=== PATIENT | female | born 1985 | race Caucasian/White ===

== ENCOUNTER 2016-06-14 08:56 | Inpatient (IN) | payer MEDICAID ==
[~2016-06-14] VITALS: Ht 165.1 cm; Wt 83.6 kg
[2016-06-14 09:27] VITALS: BMI 30.7
[2016-06-14] MEDS ORDERED: PRENAT PO (09:27)
[2016-06-14 09:30] VITALS: BP 110/75; PULSE 65; RESP 18
[2016-06-14 09:32] VITALS: Ht 165.1 cm; Wt 83.6 kg
[2016-06-14] MEDS ORDERED: LACTATED RINGER'S 1,000 ML IV SCH (09:44)
[2016-06-14] MEDS ORDERED: IBUPROFEN 600 MG TAB PO PRN (10:00)
[2016-06-14] MEDS ORDERED: METHYLERGONOVINE 0.2 MG INJ IM PRN (10:00)
[2016-06-14] MEDS ORDERED: AMPICILLIN 2 GM/NS (PMX) 100 ML IV ONE (10:00)
[2016-06-14] MEDS ORDERED: OXYTOCIN 30 UNITS/LR 500 ML IV PRN (10:00)
[2016-06-14] MEDS ORDERED: OXYTOCIN 30 UNITS/LR 500 ML IV SCH ×3 (10:00)
[2016-06-14] MEDS ORDERED: CARBOPROST 250 MCG INJ IM PRN (10:00)
[2016-06-14] MEDS ORDERED: MISOPROSTOL 200 MCG TAB PR PRN (10:00)
[2016-06-14] MEDS ORDERED: LIDOCAINE 1% (MPF) 30 ML INJ INJ PRN (10:00)
[2016-06-14] MEDS ORDERED: BUTORPHANOL 2 MG INJ IV PRN ×2 (10:00)
--- NOTE | 2016-06-14 10:58 | RADRPT ---
PROCEDURE: US OB CLINICAL INDICATION: srom/ check for presentation TECHNIQUE: Multiple sonographic images of the pelvis were obtained. The images were reviewed on a PACS workstation. COMPARISON: None FINDINGS: The cervix is not well visualized. There is a single viable intrauterine gestation. Cardiac activity is present with 150 beats per minute. There is a vertex presentation. The placenta is anterior. There is no evidence for an abruption or placenta previa. IMPRESSION: Cephalic presentation. RPTAT: EE Physician Suellen Date Time Electronically viewed and signed by Physician Suellen on 06/14/2016 10:58 RA/
[2016-06-14] MEDS ORDERED: LACTATED RINGER'S 1,000 ML IV PRN (11:00)
[2016-06-14 11:19] LABS: ADD SCAN DIFF NO
[2016-06-14 11:23] LABS: BASOPHILS % 0.4 % (0.0-2.0); EOSINOPHILS # 0.1 10^3/ul (0.0-0.5); EOSINOPHILS % 0.7 % (0.0-7.0); HEMATOCRIT 37.1 % (37.0-47.0); HEMOGLOBIN 12.4 g/dl (12.0-16.0); LYMPHOCYTES # 2.4 10^3/ul (0.8-2.9); LYMPHOCYTES % 28.6 % (15.0-51.0); MEAN CORPUSCULAR HEMOGLOBIN 29.5 pg (29.0-33.0); MEAN CORPUSCULAR HGB CONC 33.4 g/dl (32.0-37.0); MEAN CORPUSCULAR VOLUME 88.1 fl (82.0-101.0); MEAN PLATELET VOLUME 10.3 fl (7.4-10.4); MONOCYTE # 0.8 10^3/ul (0.3-0.9); MONOCYTES % 9.1 % (0.0-11.0); NEUTROPHILS % 60.7 % (39.0-77.0); PLATELET COUNT 207 10^3/UL (140-415); RED BLOOD COUNT 4.21 10^6/ul (4.20-5.40); RED CELL DISTRIBUTION WIDTH 13.8 % (11.5-14.5); WHITE BLOOD COUNT 8.2 10^3/ul (4.8-10.8)
[2016-06-14 11:32] LABS: INR 0.94; PROTIME 12.6 Sec (12.2-14.2)
[2016-06-14 11:33] LABS: PARTIAL THROMBOPLASTIN TIME 23.8 Sec (25.0-35.0)
[2016-06-14] MEDS ORDERED: AMPICILLIN 1 GM/NS (PMX) 50 ML IV SCH (14:00)
--- NOTE | 2016-06-14 16:10 | HP ---
Date/Time of Note Date/Time of Note DATE: 06/14/16 TIME: 15:58 OB - History Hx of Present Free Text/Dictation 30 years old female 2 para 1, 36 weeks and 3 days admitted to [facility] in active labor with premature rupture of membrane ,admission pelvic examination cervix 1-1/2 cm 50% effaced vertex at -1 station contraction 2-4 minutes, after admission patient started on antibiotics and labor augmentation with Pitocin IV infusion drip., heart rate category 1. Chief Complaint: Premature rupture of membrane labor contraction Estimated Due Date: Jun 11, 2016 : 2 Para: 1 Care: Good Care Ultrasounds: Normal mid trimester US Obstetrical Complications: None Medical Complications: None Past Family/Social History * Past Medical, Surgical, Family and Obstetric Histories reviewed from chart. Rubella: immune RPR/VDRL: Negative GBS Status: Negative OB Admission Exam Vital Signs Vital Signs Vital Signs Date Time Temp Pulse Resp B/P Pulse Ox O2 Delivery O2 Flow Rate FiO2 06/14/16 09:30 98.2 65 18 110/75 Room Air Physical Exam HEENT: WNL Heart: Rhythm Normal Lungs: Clear, Equal Abdomen: WNL Extremities: Normal Reflexes: Normal Cervical Dilatation: 2cm Effacement: 50% Station: -1 Membranes: Ruptured Amniotic Fluid: Clear Heart Rate: 130's Accelerations: Accelerations Present Decelerations: No Decelerations Varibility: Moderate Contractions on Admission: < 5 Minutes Apart Intensity: Mild Last 72 hours Lab Results CBC & BMP 06/14/16 10:40 TONA WHITAKER MD Jun 14, 2016 16:09
--- NOTE | 2016-06-14 16:16 | LDN ---
Date/Time of Note Date/Time of Note DATE: 06/14/16 TIME: 16:11 Delivery Summary Normal spontaneous vaginal delivery of a live baby boy from ROSA position shoulders delivered without difficulty followed with the rest of the baby,s body placenta spontaneous expulsion inspected complete patient sustained small first-degree perineal laceration repaired with 3-0 chromic catgut, estimated blood loss 300 cc patient received 30 units of Pitocin through the IV infusion after the delivery fundus was firm and lochia moderate dark red color, Placenta Delivered: Spontaneously Meconium: none Perineum intact?: No Perineal laceration repair: First-degree perineal laceration repaired with 3-0 chromic catgut Anesthesia type: Local Estimated blood loss: 300 Sponge & Needle done & correct: Yes All needle counts correct: Yes Any foreign bodies felt in the: No Problems: Infant Delivery Information Sex Infant Sex: male Apgars 1 Minute: 9 5 Minute: 9 Suctioning Nose & mouth suctioned at perico: Yes Delee suction performed: No Umbilical Cord Umbilical cord with: 3 Vessels Cord presentations: no nuchal cord Cord Blood was obtained: Yes TONA WHITAKER MD Jun 14, 2016 16:16
[2016-06-14] MEDS: OXYTOCIN 30 UNITS/LR 500 ML IV SCH ×2 (17:31→20:43)
[2016-06-14 18:00] VITALS: BP 114/70; PULSE 74; RESP 18
[2016-06-14] MEDS ORDERED: ACETAMINOPHEN 325 MG TAB PO PRN (18:00)
[2016-06-14] MEDS ORDERED: ACETAMINOPHEN/CODEINE #3 TAB PO PRN ×2 (18:00)
[2016-06-14] MEDS ORDERED: BENZOCAINE 20% 56 ML SPRAY TOP PRN (18:00)
[2016-06-14] MEDS ORDERED: WITCH HAZEL/GLYCERIN PAD PR PRN (18:00)
[2016-06-14] MEDS: IBUPROFEN 600 MG TAB PO SCH ×2 (18:00→23:35)
[2016-06-14] MEDS ORDERED: DIBUCAINE 1% 30 GM OINT TOP PRN (18:00)
[2016-06-14] MEDS ORDERED: ONDANSETRON 4 MG INJ IV PRN (18:00)
[2016-06-14] MEDS ORDERED: LANOLIN 7 GM TUBE TOP PRN (18:00)
[2016-06-14] MEDS ORDERED: OXYCODONE/ASPIRIN (4.88/325) TAB PO PRN ×2 (18:00)
[2016-06-14 19:35] VITALS: BP 116/57; PULSE 77; RESP 18
[2016-06-14] MEDS: SENNA/DOCUSATE NA (8.6MG/50MG) TAB PO SCH (21:20)
[2016-06-14 23:55] VITALS: BP 103/59; PULSE 76; RESP 16
[2016-06-15 04:15] VITALS: BP 98/56; PULSE 68; RESP 18
[2016-06-15] MEDS: IBUPROFEN 600 MG TAB PO SCH ×3 (05:30→18:18)
[2016-06-15 08:14] LABS: ADD SCAN DIFF NO
[2016-06-15 08:24] LABS: BASOPHILS % 0.3 % (0.0-2.0); EOSINOPHILS # 0.1 10^3/ul (0.0-0.5); HEMATOCRIT 35.5 % (37.0-47.0); HEMOGLOBIN 11.6 g/dl (12.0-16.0); LYMPHOCYTES # 2.7 10^3/ul (0.8-2.9); LYMPHOCYTES % 22.7 % (15.0-51.0); MEAN CORPUSCULAR HGB CONC 32.7 g/dl (32.0-37.0); MEAN CORPUSCULAR VOLUME 88.8 fl (82.0-101.0); MEAN PLATELET VOLUME 10.9 fl (7.4-10.4); MONOCYTE # 0.9 10^3/ul (0.3-0.9); MONOCYTES % 7.4 % (0.0-11.0); NEUTROPHIL # 8.2 10^3/ul (1.6-7.5); NEUTROPHILS % 68.3 % (39.0-77.0); PLATELET COUNT 194 10^3/UL (140-415)
[2016-06-15 08:30] VITALS: BP 114/68; PULSE 73; RESP 19
[2016-06-15] MEDS: SENNA/DOCUSATE NA (8.6MG/50MG) TAB PO SCH ×2 (08:55→20:32)
--- NOTE | 2016-06-15 12:43 | PN ---
Date/Time of Note Date/Time of Note DATE: 06/15/16 TIME: 12:43 OB Subjective Subjective Subjective day 1 Afebrile vital signs stable abdomen is uterus for lochia normal extremity normal TONA WHITAKER MD Jun 15, 2016 12:43
[2016-06-15 12:45] VITALS: BP 110/69; PULSE 89; RESP 20
[2016-06-15 17:04] VITALS: BP 114/74; PULSE 70; RESP 18
[2016-06-15 20:02] VITALS: BP 105/63; PULSE 77; RESP 18
[2016-06-16] MEDS: IBUPROFEN 600 MG TAB PO SCH ×3 (00:02→11:36)
[2016-06-16 04:00] VITALS: BP 105/59; PULSE 76; RESP 16
[2016-06-16 08:00] VITALS: BP 109/59; PULSE 65; RESP 18
[2016-06-16] MEDS ORDERED: MEASLES,MUMPS,RUBELLA VACCINE INJ SC* ONE (09:00)
[2016-06-16] MEDS: SENNA/DOCUSATE NA (8.6MG/50MG) TAB PO SCH (09:08)
--- NOTE | 2016-06-16 16:32 | PD.PPDC ---
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
[2016-06-16 16:33] VITALS: BP 103/70; PULSE 65; RESP 19
--- NOTE | 2016-06-16 16:34 | DS ---
Date/Time of Note Date/Time of Note DATE: 06/16/16 TIME: 16:32 Obstetrical Discharge Record Final Diagnosis Final Diagnosis: Term delivered Vaginal Delivery Obstetrical Delivery: Spontaneous Condition on Discharge Physical Assessment Last Vitals: Post normal vaginal delivery day 2 Vital signs are stable Afebrile abdomen soft uterus firm lochia normal extremity normal patient discharged home with follow-up instruction to be seen at the clinic in 2 weeks Voiding: Yes Bowel Movement: Yes Breast: Filling Fundus: Firm Calf Tenderness: No Patient Condition: Good TONA WHITAKER MD Jun 16, 2016 16:34
== END 2016-06-16 18:14 | disposition home or self-care (01) | DRG 775 ==
LOC: OBT 08:56 → L-D 09:17 → OBT 09:38 → L-D 09:38 → PP1 18:06
PROVIDERS: ADMIT Obstetrics & Gynecology; ATTEND Obstetrics & Gynecology
PROC: 10E0XZZ Delivery of Products of Conception, External Approach (ICD-10-PCS; principal; 2016-06-14)
PROC: 0HQ9XZZ Repair Perineum Skin, External Approach (ICD-10-PCS; 2016-06-14)
DX: O42.913 Preterm premature rupture of membranes, unspecified as to length of time between rupture and onset of labor, third trimester (principal); O70.0 First degree perineal laceration during delivery; Z3A.36 36 weeks gestation of pregnancy; Z37.0 Single live birth
CPT/HCPCS: 76816; 85025; 85610; 85730; 86592; 86900; 86901; 87340; G0463; J0290; J2590; J7120